=== PATIENT | male | born 1980 | race African-American/Black ===

== ENCOUNTER 2017-10-01 11:34 | Emergency (ER) | payer MEDICAID ==
[~2017-10-01] VITALS: Ht 172.7 cm; Wt 102.3 kg
[2017-10-01 11:49] VITALS: Ht 172.7 cm; Wt 102.3 kg
[2017-10-01] MEDS ORDERED: HYDROCODON-ACE1 EAC7 PO (14:36)
[2017-10-01 15:04] VITALS: BP 120/79
== END 2017-10-01 15:05 | disposition home or self-care (01) ==
LOC: D.ER 11:34
DX: S09.90XA Unspecified injury of head, initial encounter (principal); W22.8XXA Striking against or struck by other objects, initial encounter; Y93.89 Activity, other specified; Y92.89 Other specified places as the place of occurrence of the external cause; F17.200 Nicotine dependence, unspecified, uncomplicated